=== PATIENT | female | born 1975 | race African-American/Black ===

== ENCOUNTER 2022-10-19 07:05 | Inpatient (IN) | payer BC ==
[2022-10-19] MEDS ORDERED: Metoprolol Tartrate 5 MG/5 ML VIAL ONE (07:16)
[2022-10-19 07:28] LABS: #Basophils 0.1 10x3/uL (0.0-0.2); #Monocytes 1.2 10x3/uL (0.0-1.1); #Neutrophils 12.6 10x3/uL (1.5-8.4); %Basophils 0.4 % (0.0-2.0); %Eosinophils 0.1 % (0.0-6.0); %Lymphocytes 15.9 % (18.0-47.0); Hemoglobin 13.5 g/dL (12.0-15.5); Mean Corpuscular HGB CONC 32.5 g/dL (32.0-36.0); Mean Corpuscular Hemoglobin 25.6 pg (27.0-33.0); Mean Corpuscular Volume 78.8 fl (81.6-98.3); Mean Platelet Volume 9.3 fl (7.4-10.4); Platelet Count 457 10x3/uL (150-450); RBC Distribution Width 14.1 % (11.5-14.5); Red Blood Cell (RBC) Count 5.28 10x6/uL (3.90-5.03); White Blood Cell (WBC) Count 16.6 10x3/uL (3.5-10.5)
[2022-10-19 07:46] LABS: ALT (SGPT) 16 U/L (8-55); AST (SGOT) 15 U/L (5-34); Albumin 4.1 g/dL (3.5-5.0); Alkaline Phosphatase 94 U/L (40-110); Anion Gap 17 mmol/L (10-20); BUN (Urea Nitrogen) 12 mg/dL (7.0-18.7); Bilirubin, Total 0.4 mg/dL (0.2-1.2); Calc. Creatinine Clearance 0 mL/min (70-130); Carbon Dioxide 21 mmol/L (22-29); Chloride 104 mmol/L (98-107); Estimated GFR 78; Globulin 3.7 g/dL (2.4-3.5); Glucose 123 mg/dL (70-105); Potassium 3.7 mmol/L (3.5-5.1); Protein, Total 7.8 g/dL (6.0-8.3); Sodium 138 mmol/L (136-145)
[2022-10-19] MEDS ORDERED: Nitroglycerin 0.4 MG TAB (25 Tab Bottle) SL PRN (07:47)
[2022-10-19] MEDS ORDERED: Bisacodyl 5 MG TAB PO PRN (07:47)
[2022-10-19] MEDS ORDERED: Ondansetron PF 4 MG/2 ML Vial IVP PRN (07:47)
[2022-10-19] MEDS ORDERED: Senokot S 8.6-50 MG TAB PO PRN (07:47)
[2022-10-19] MEDS ORDERED: HYDROcodone/Acetaminophen 5/325 mg Tablet PO PRN (07:47)
[2022-10-19] MEDS ORDERED: Acetaminophen 325 MG TAB PO PRN (07:47)
[2022-10-19] MEDS ORDERED: Morphine 2 MG/ML VIAL SLOW IVP PRN (07:47)
[2022-10-19 07:56] LABS: PTT 48.9 sec (22.0-33.0); Prothrombin Time 11.2 sec (9.5-12.1)
[2022-10-19] MEDS ORDERED: Heparin 25,000 units/D5W 500 ML IVPB SCH (08:00)
[2022-10-19] MEDS ORDERED: Sodium Chloride 0.9% 1,000 ML IV SCH (08:00)
[2022-10-19] MEDS ORDERED: Heparin 10,000 UNITS/ 10 ML VIAL SLOW IVP SCH (08:00)
[2022-10-19] MEDS ORDERED: Nitroglycerin 50 MG/250 ML BOT 250 ML IVPB SCH ×2 (08:00)
[2022-10-19] MEDS ORDERED: Metoprolol Tartrate 25 MG TAB PO SCH (09:00)
[2022-10-19] MEDS: Famotidine/PF 20 mg/2ml Vial SLOW IVP SCH ×2 (09:00→21:41)
[2022-10-19] MEDS ORDERED: Aspirin 81 mg Enteric Coated Tablet PO SCH (09:00)
[2022-10-19] MEDS: Nicotine 21 MG PATCH TD SCH (09:00)
[2022-10-19 09:12] LABS: SARS-CoV-2 NAA Rapid Test Not Detected (NotDetected)
[2022-10-19] MEDS ORDERED: Lidocaine 1% (PF) 30 ML VIAL ONE (09:36)
[2022-10-19] MEDS ORDERED: Nitroglycerin 50 MG/250 ML BOT 250 ML ONE (09:37)
[2022-10-19] MEDS ORDERED: Adenosine 6 MG/2 ML VIAL ONE (09:37)
[2022-10-19] MEDS ORDERED: Heparin 10,000 UNITS/ 10 ML VIAL ONE ×2 (09:37→11:27)
[2022-10-19] MEDS ORDERED: Midazolam HCl 2 mg/2 ml Vial ONE ×2 (10:23→10:38)
[2022-10-19] MEDS ORDERED: Fentanyl 100 MCG/2 ML VIAL ONE (10:23)
[2022-10-19] MEDS ORDERED: Iopamidol 300 61% 100 ML VIAL FS ONE (10:24)
[2022-10-19 10:27] LABS: Hemoglobin 13.3 g/dL (12.0-15.5); Platelet Count 445 10x3/uL (150-450)
[2022-10-19 10:42] LABS: Troponin I 0.615 ng/mL (< 0.028)
[2022-10-19] MEDS ORDERED: Atropine Sulfate 0.4 mg/1 ml Vial ONE (10:45)
[2022-10-19] MEDS ORDERED: PHENYLEPHRINE-NS 100 MCG/ML 10 ML SYRINGE ONE (10:45)
[2022-10-19] MEDS ORDERED: TICAGRELOR 90 MG TABLET ONE (10:53)
[2022-10-19] MEDS ORDERED: Protamine Sulfate 50 MG/5 ML VIAL ONE (11:54)
[2022-10-19] MEDS: Sodium Chloride 0.9% 1,000 ML IV SCH ×2 (12:30→21:41)
[2022-10-19] MEDS ORDERED: Carvedilol 3.125 MG TAB PO SCH (17:00)
[2022-10-19 17:03] VITALS: BMI 42.4
[2022-10-19] MEDS: Carvedilol 6.25 MG TAB PO SCH (18:28)
[2022-10-19] MEDS ORDERED: Atorvastatin Calcium 40 MG TAB PO SCH ×2 (21:00)
[2022-10-19] MEDS: TICAGRELOR 90 MG TABLET PO SCH (21:41)
[2022-10-20 05:12] LABS: #Basophils 0.1 10x3/uL (0.0-0.2); #Eosinphils 0.1 10x3/uL (0.0-0.5); #Monocytes 1.4 10x3/uL (0.0-1.1); #Neutrophils 9.1 10x3/uL (1.5-8.4); %Basophils 0.4 % (0.0-2.0); %Eosinophils 0.4 % (0.0-6.0); %Lymphocytes 24.5 % (18.0-47.0); %Neutrophils 64.3 % (40.0-75.0); Hemoglobin 11.5 g/dL (12.0-15.5); Mean Corpuscular HGB CONC 32.1 g/dL (32.0-36.0); Mean Corpuscular Hemoglobin 25.6 pg (27.0-33.0); Mean Corpuscular Volume 79.7 fl (81.6-98.3); Mean Platelet Volume 9.5 fl (7.4-10.4); Platelet Count 380 10x3/uL (150-450); RBC Distribution Width 14.2 % (11.5-14.5); Red Blood Cell (RBC) Count 4.49 10x6/uL (3.90-5.03); White Blood Cell (WBC) Count 14.1 10x3/uL (3.5-10.5)
[2022-10-20 05:33] LABS: ALT (SGPT) 15 U/L (8-55); AST (SGOT) 24 U/L (5-34); Albumin 3.4 g/dL (3.5-5.0); Alkaline Phosphatase 71 U/L (40-110); Anion Gap 14 mmol/L (10-20); BUN (Urea Nitrogen) 12 mg/dL (7.0-18.7); Bilirubin, Total 0.5 mg/dL (0.2-1.2); Calc. Creatinine Clearance 157 mL/min (70-130); Calcium 8.7 mg/dL (7.8-10.44); Carbon Dioxide 22 mmol/L (22-29); Cardiac Risk 4.9 (Less than 4.5); Chloride 106 mmol/L (98-107); Cholesterol 178 mg/dl (< 200 Desired); Estimated GFR 83; Globulin 2.9 g/dL (2.4-3.5); Glucose 121 mg/dL (70-105); HDL Cholesterol 36 mg/dL (>60 Neg Risk); LDL Cholesterol, Calculated 117 mg/dL; Potassium 3.4 mmol/L (3.5-5.1); Protein, Total 6.3 g/dL (6.0-8.3); Sodium 139 mmol/L (136-145); Triglycerides 126 mg/dL (Less than 150)
[2022-10-20] MEDS: Carvedilol 6.25 MG TAB PO SCH (08:21)
[2022-10-20] MEDS: TICAGRELOR 90 MG TABLET PO SCH (08:21)
[2022-10-20] MEDS: Famotidine/PF 20 mg/2ml Vial SLOW IVP SCH (08:22)
[2022-10-20 08:24] VITALS: TEMP 97.8
[2022-10-20] MEDS ORDERED: Aspirin 81 mg Enteric Coated Tablet PO SCH (09:00)
[2022-10-20] MEDS ORDERED: Rosuvastatin 20 MG TAB PO SCH (09:00)
[2022-10-20] MEDS ORDERED: Lisinopril 10 MG TAB PO SCH (09:00)
[2022-10-20] MEDS ORDERED: Aspirin Chewable 81 MG TAB PO SCH (09:00)
[2022-10-20] MEDS: Nicotine 21 MG PATCH TD SCH (10:27)
[2022-10-20] MEDS: Sodium Chloride 0.9% 1,000 ML IV SCH (12:02)
[2022-10-20 12:31] VITALS: BP 104/68
[2022-10-20 12:45] LABS: Hemoglobin A1c 5.7 % (4.0-6.0)
== END 2022-10-20 14:02 | disposition home or self-care (01) | DRG 247 ==
LOC: CSHERS 07:05 → CSHTELE 14:52
PROVIDERS: ADMIT Family Medicine; ATTEND Internal Medicine
PROC: 027035Z Dilation of Coronary Artery, One Artery with Two Drug-eluting Intraluminal Devices, Percutaneous Approach (ICD-10-PCS; principal; 2022-10-19)
PROC: 4A023N7 Measurement of Cardiac Sampling and Pressure, Left Heart, Percutaneous Approach (ICD-10-PCS; 2022-10-19)
PROC: B2111ZZ Fluoroscopy of Multiple Coronary Arteries using Low Osmolar Contrast (ICD-10-PCS; 2022-10-19)
PROC: B2151ZZ Fluoroscopy of Left Heart using Low Osmolar Contrast (ICD-10-PCS; 2022-10-19)
PROC: B240ZZ3 Ultrasonography of Single Coronary Artery, Intravascular (ICD-10-PCS; 2022-10-19)
DX: I21.11 ST elevation (STEMI) myocardial infarction involving right coronary artery (principal); Z68.41 Body mass index [BMI] 40.0-44.9, adult; I10 Essential (primary) hypertension; F17.210 Nicotine dependence, cigarettes, uncomplicated; E66.01 Morbid (severe) obesity due to excess calories; E78.5 Hyperlipidemia, unspecified; Z20.822 Contact with and (suspected) exposure to COVID-19; Z79.899 Other long term (current) drug therapy; Z90.49 Acquired absence of other specified parts of digestive tract; Z82.49 Family history of ischemic heart disease and other diseases of the circulatory system; Z88.0 Allergy status to penicillin; Z98.51 Tubal ligation status; Z98.890 Other specified postprocedural states; Z90.710 Acquired absence of both cervix and uterus; Z71.6 Tobacco abuse counseling
CPT/HCPCS: 36415; 71045; 80053; 80061; 83036; 83880; 85025; 85347; 85610; 85730; 92928; 92978; 93005; 93010; 93458; 97139; 99152; 99153; C1725; C1726; C1753; C1760; C1769; C1874; C1887; C9600; J0153; J0461; J1644; J2001; J2250; J2720; J3010; J7050; Q9967; S0028; U0002

== ENCOUNTER 2023-06-04 12:57 | Emergency (ER) | payer BC ==
[2023-06-04 16:02] LABS: #Basophils 0.1 10x3/uL (0.0-0.2); #Eosinphils 0.1 10x3/uL (0.0-0.5); #Monocytes 1.5 10x3/uL (0.0-1.1); #Neutrophils 10.3 10x3/uL (1.5-8.4); %Basophils 0.4 % (0.0-2.0); %Eosinophils 0.4 % (0.0-6.0); %Lymphocytes 24.5 % (18.0-47.0); %Monocytes 9.4 % (0.0-10.0); %Neutrophils 64.9 % (40.0-75.0); Hematocrit 37.8 % (34.9-44.5); Hemoglobin 12.1 g/dL (12.0-15.5); Mean Corpuscular Hemoglobin 23.7 pg (27.0-33.0); Mean Corpuscular Volume 74.1 fl (81.6-98.3); Mean Platelet Volume 9.4 fl (7.4-10.4); Platelet Count 417 10x3/uL (150-450); RBC Distribution Width 17.9 % (11.5-14.5); White Blood Cell (WBC) Count 15.9 10x3/uL (3.5-10.5)
[2023-06-04] MEDS ORDERED: HYDROcodone/Acetaminophen 5/325 mg Tablet ONE (16:46)
[2023-06-04 17:05] LABS: Giant Platelets SLIGHT HPF (0-5); Microcytosis SLIGHT = 6-15 cells (100X) (0-5/hpf); Platelet Adequacy Comment Appears Adequate; Platelet Clumps SLIGHT
== END 2023-06-04 17:24 | disposition home or self-care (01) ==
LOC: CSHERS 12:57
DX: N83.291 Other ovarian cyst, right side (principal); K66.1 Hemoperitoneum; I10 Essential (primary) hypertension; E78.5 Hyperlipidemia, unspecified; I25.10 Atherosclerotic heart disease of native coronary artery without angina pectoris; Z87.891 Personal history of nicotine dependence; Z79.82 Long term (current) use of aspirin; Z79.899 Other long term (current) drug therapy
CPT/HCPCS: 36415; 76856